=== PATIENT | male | born 2000 | race Hispanic/Latino ===

== ENCOUNTER 2024-06-01 01:32 | Emergency (ER) | payer SELFPAY | END 2024-06-01 02:11 | disposition home or self-care (01) | LOC: BURERS 01:32 | DX: F41.9 Anxiety disorder, unspecified (principal); F10.10 Alcohol abuse, uncomplicated; F17.290 Nicotine dependence, other tobacco product, uncomplicated | CPT/HCPCS: 36416; 99283 ==